=== PATIENT | female | born 1985 | race Caucasian/White ===

== ENCOUNTER 2020-05-28 13:32 | Outpatient (CLI) | payer BC, SELFPAY ==
--- NOTE | ~2020-05-28 | US_ITS ---
EXAMINATION: US OB /maternal detail DATE: 05/28/2020 14:32 INDICATION: survey TECHNIQUE: Multiple obstetric sonographic images performed. FINDINGS: No prior studies for comparison. There is a single living fetus in variable presentation. The placenta is posterior without placenta previa. Placenta is low lying measuring 1.6 cm to the cervix. Amniotic fluid volume is normal. cardiac activity and movement is noted with a heart rate of 149 beats per minute. The following anatomy was identified as normal: 4 chamber heart 3 vessel cord cord insertion kidneys urinary bladder stomach spine diaphragm ventricles cisterna magna cerebellum The following biometric data were obtained: BPD: 44mm corresponds to gestational age 19 weeks 1 days. Head circumference: 164 mm corresponds to gestational age 19 weeks 1 days. Abdominal circumference: 144 mm corresponds to gestational age 19 weeks 4 days. Femur length: 31 mm corresponds to gestational age 19 weeks 5 days. Head circumference to abdominal circumference ratio: 1.14 (normal range for expected gestational age is 1.08-1.26). Estimated weight: 299 grams +/- 45 grams using Hadlock method, which is 70th percentile. IMPRESSION: 1: Single living intrauterine with an estimated gestational age of 19weeks 3days by current ultrasound measurements, with an EDC of 10/19/2020 in variable presentation. 2: Normal survey. 3: Posterior low-lying placenta measuring 1.6 cm to the cervix. Reviewed, dictated and finalized at location A. [facility] [employer] IMPRESSION: 1: Single living intrauterine with an estimated gestational age of 19 weeks 3days by current ultrasound measurements, with an EDC of 10/19/2020 in va riable presentation. 2: Normal survey. 3: Posterior low-lying placenta measuring 1.6 cm to the cervix.
== END 2020-05-28 13:33 | disposition home or self-care (01) ==
PROVIDERS: PCP Obstetrics & Gynecology; Visit Provider Obstetrics & Gynecology
DX: Z34.92 Encounter for supervision of normal pregnancy, unspecified, second trimester (principal); Z3A.19 19 weeks gestation of pregnancy
CPT/HCPCS: 76805

== ENCOUNTER → 2020-07-29 14:45 | Outpatient (CLI) | payer BC, SELFPAY ==
--- NOTE | ~2020-07-29 | US_ITS ---
EXAMINATION: US OB limited DATE: 07/29/2020 15:18 INDICATION: Low-lying placenta, third trimester TECHNIQUE: Real-time ultrasound of the pelvis was performed. The interpreting radiologist was not pre sent for the study. COMPARISON: 05/28/2020 FINDINGS: There is a single living fetus in breech presentation. The placenta is posterior and 5 cm f rom the internal cervical os. cardiac activity and movement are noted. heart rate i s 162 beats per minute (bpm). The amniotic fluid index is subjectively normal. IMPRESSION: 1. Single living fetus in breech presentation. 2. Resolved low-lying placenta. Reviewed, dictated and finalized at location A. E [employer]IGGER
== END ==
PROVIDERS: Visit Provider Obstetrics & Gynecology Gynecologic Oncology
DX: O44.40 Low lying placenta NOS or without hemorrhage, unspecified trimester (principal); O32.1XX0 Maternal care for breech presentation, not applicable or unspecified; Z3A.00 Weeks of gestation of pregnancy not specified
CPT/HCPCS: 76815